=== PATIENT | female | born 2000 | race Two or more races ===

== ENCOUNTER 2025-01-11 06:32 | Emergency (ER) | payer MEDICAID, SELFPAY ==
[2025-01-11 06:32] VITALS: BMI 31.1
[2025-01-11 06:40] VITALS: BP 121/72; PULSE 70; RESP 19; TEMP 36.4; O2SAT 96
--- NOTE | 2025-01-11 06:45 | XR_ITS ---
Examination: Abdomen sonogram, Limited Date and time of exam: January 11, 2025, 0715 hours INDICATIONS: Epigastric pain nausea vomiting beginning today Technique: Real-time jay scale transabdominal sonographic images of the upper abdomen obtained. Findings: Normal gallbladder Normal common bile duct 0.2 cm Pancreatic head 1.4 cm Liver 14.1 cm no focal liver lesions Normal hepatopetal portal venous flow Patent IVC IMPRESSION: Negative study
--- NOTE | 2025-01-11 06:57 | PD.EDABDPN ---
ED Abdominal Pain RME/HPI General Chief Complaint: Abdominal Pain Stated complaint: RUQ PAIN/NAUSEA/ DIARRHEA X 1DAY Time seen by provider: 01/11/25 06:33 Arrival date/time: 01/11/25 06:32 24-year-old female with no known medical history presents to the emergency room with a chief complaint of right upper quadrant abdominal pain, nausea, diarrhea x 1 day Source: patient Mode of arrival: ambulatory Limitations: no limitations Related Data Previous Rx's ?Medication ?Instructions ?Recorded acetaminophen 500 mg tablet 1,000 mg (2 x 500 mg) PO Q6H PRN 01/11/25 (Tylenol Extra Strength) pain #30 tabs ondansetron 4 mg disintegrating 4 mg PO Q8H PRN nausea and 01/11/25 tablet vomiting #14 tabs Allergies Allergy/AdvReac Type Severity Reaction Status Date / Time No Known Allergies Allergy Verified 01/11/25 06:35 Review of Systems Review of Systems Systems Reviewed: All systems reviewed, normal except as documented Constitutional Constitutional: Reports system reviewed and no additional complaints, except as documented, Denies fatigue, Denies fever(s), Denies headache(s) and Denies weakness Eyes Eyes: Reports system reviewed and no additional complaints, except as documented, Denies blurry vision and Denies change in vision ENT Ears, Nose, Mouth, and Throat: Reports system reviewed and no additional complaints, except as documented, Denies otalgia, Denies headache(s), Denies nasal congestion, Denies throat swelling and Denies vertigo Cardiovascular Cardiovascular: Reports system reviewed and no additional complaints, except as documented, Denies chest pain, Denies dyspnea and Denies dyspnea on exertion Respiratory Respiratory: Reports system reviewed and no additional complaints, except as documented, Denies chest congestion, Denies cough, Denies dyspnea, Denies dyspnea on exertion and Denies wheezing Gastrointestinal Gastrointestinal: Reports system reviewed and no additional complaints, except as documented, Reports abdominal pain, Reports cramping, Reports nausea and Reports vomiting Genitourinary Genitourinary: Reports system reviewed and no additional complaints, except as documented Musculoskeletal Musculoskeletal: Reports system reviewed and no additional complaints, except as documented and Denies back pain Integumentary/Breasts Skin/Breast: Reports system reviewed and no additional complaints, except as documented and Denies wounds Neurologic Neurologic: Reports system reviewed and no additional complaints, except as documented, Denies confusion, Denies headache(s), Denies lack of coordination, Denies vertigo and Denies weakness Psychiatric Psychiatric: Reports system reviewed and no additional complaints, except as documented, Denies anxiety, Denies confusion, Denies depression, Denies paranoia, Denies suicidal ideation and Denies tactile hallucinations Endocrine Endocrine: Reports system reviewed and no additional complaints, except as documented and Denies fatigue Hematologic/Lymphatic Hematologic/Lymphatic: Reports system reviewed and no additional complaints, except as documented and Denies lymphadenopathy Allergic/Immunologic Allergic/Immunologic: Reports system reviewed and no additional complaints, except as documented, Denies throat swelling, Denies urticaria and Denies wheezing Past Medical History Social History SMOKING STATUS: Never smoker ED Exam General Limitations: Present no limitations General appearance: Present alert and in no apparent distress Head Head exam: Present atraumatic Eye Eye exam: Present normal appearance, PERRL and EOMI ENT ENT exam: Present normal exam, normal oropharynx and mucous membranes moist Neck Neck exam: Present normal inspection, full ROM and trachea midline Chest Chest inspection: Present normal inspection and symmetric chest wall rise Respiratory Respiratory exam: Present normal lung sounds bilaterally; Absent respiratory distress, wheezes, stridor, accessory muscle use or prolonged expiratory phase Cardiovascular Cardiovascular exam: Present regular rate, normal rhythm and normal heart sounds Abdominal Exam Abdominal exam: Present soft, tenderness and normal bowel sounds; Absent distention, guarding, rebound or rigidity Abdominal tenderness: Present RUQ, LUQ, epigastrium and mild Extremities Exam Extremities exam: Present normal inspection and full ROM Back Exam Back exam: Present normal inspection and full ROM Neurological Exam Neurological exam: Present alert, oriented X3 and CN II-XII intact Psychiatric Psychiatric exam: Present normal affect and normal mood Skin Skin exam: Present warm, dry, intact and normal color Course Quality Measures none Orders Category Date Time Status US gall bladder Stat Exams 01/11/25 06:45 Completed CBC Stat Lab 01/11/25 07:05 Completed CMP [Comprehensive Metabolic Panel] Stat Lab 01/11/25 07:05 Completed HCG Qualitative,Urine Stat Lab 01/11/25 07:09 Completed Lipase Stat Lab 01/11/25 07:05 Completed UA [Urinalysis] Stat Lab 01/11/25 07:09 Completed Urine Culture Stat Lab 01/11/25 07:09 Received Vital Signs Vital signs: Vital Signs Temperature 97.5 F 01/11/25 06:40 Pulse Rate 70 01/11/25 06:40 Respiratory Rate 19 01/11/25 06:40 Blood Pressure 121/72 01/11/25 06:40 Pulse Oximetry (%) 96 01/11/25 06:40 Oxygen Delivery Method Room Air 01/11/25 06:40 Abdominal Pain MDM MDM Narrative MDM Narrative:: 24-year-old female with no known medical history presents to the emergency room with a chief complaint of right upper quadrant abdominal pain, nausea, diarrhea x 1 day Patient is hemodynamically stable and in no apparent distress Physical examination shows epigastric and right upper quadrant abdominal pain with palpation. The patient is currently she states she was about 6 to 8 weeks. The patient denies any lower abdominal pain or any pelvic pain. The patient denies any dysuria. Ultrasound of the gallbladder was completed and was negative for any cholelithiasis or cholecystitis. CBC shows some leukocytosis but the patient states she has been vomiting. CMP is within normal limits. Since the patient is currently I spoke to her about further radiation. The patient states she would like to go home with pain medication and nausea medication and if her symptoms get worse return to the emergency room Patient was discharged and educated to follow-up with primary care provider in the next 24 to 48 hours and return to the emergency room for any evidence of worsening signs or symptoms Patient data External records reviewed:: [facility] previous records Clinical information provided by:: patient Social determinants that could affect healthcare access:: none Patient has the following chronic illnesses:: No chronic illness How is presenting disease/condition affected by chronic disease/condition?: no chronic disease Evaluation data The following diagnostics were reviewed and interpreted by me:: lab results and radiology exam(s) Lab and/or radiology exams considered but not ordered:: Labs and radiology exams considered and ordered Interpretation Summary: Ultrasound gallbladder-Findings: Normal gallbladder Normal common bile duct 0.2 cm Pancreatic head 1.4 cm Liver 14.1 cm no focal liver lesions Normal hepatopetal portal venous flow Patent IVC IMPRESSION: Negative study Medications / Prescriptions Medications or Prescriptions considered but not ordered:: Medication given Medication administrations:: Medication given Consultations Consultation(s) initiated? (list below): No Diagnosis Differential diagnosis abdominal pain: abdominal pain, gastroenteritis, pancreatitis and other (Cholelithiasis/cholecystitis) Most likely diagnosis given after review of the tests above:: Gastroenteritis Admission Indicated Admission indicated?: not indicated Admission Request Was there a request for admission?: No Disposition Plan Disposition Plan: Discharge Discharge Attestation Discharge Attestation: The patient and all family members were given an opportunity to ask questions and understood the discharge instructions. Discharge instructions specifically effects, indications for sooner follow up or return to the emergency department, and the expected course of current diagnosis. Patient condition: Stable Discharge Plan Plan Patient Disposition: HOME (Self Care) Prescriptions/Referrals Prescriptions/Med Rec: New ondansetron 4 mg tablet,disintegrating 4 mg PO Q8H PRN (Reason: nausea and vomiting) Qty: 14 0RF acetaminophen [Tylenol Extra Strength] 500 mg tablet 1,000 mg PO Q6H PRN (Reason: pain) Qty: 30 0RF Referrals: Compa Buchanan MD [Primary Care Provider, Family Practice] - In 1 week Problem List Clinical Impression: Gastroenteritis Patient/Caregiver Discharge Instructions Education Materials: ED Gastroenteritis, Noninfectious Additional Instructions: Please follow-up with your primary care provider in the next 24 to 48 hours Ultrasound of your gallbladder was within normal limits Blood work and urinalysis were within normal limits For any evidence of worsening signs or symptoms return to the emergency room immediately Print Language: Czech Stand Alone Forms: [employer] Award Info., Work/School Release, Patient Portal Info Letter
[2025-01-11 07:20] LABS: Collection Type, Urine Clean Catch
[2025-01-11 07:24] LABS: HCG Qualitative,Urine Positive
[2025-01-11 07:24] LABS: Basophils # (Auto) 0.0 Thou/mm3 (0.0-0.2); Basophils % (Auto) 0 % (0-2.5); Eosinophils # (Auto) 0.0 Thou/mm3 (0.0-0.5); Eosinophils % (Auto) 0 % (0-10); Hematocrit 40.1 % (36.0-46.0); Hemoglobin 13.7 g/dL (12.0-16.0); Immature Granulocytes Auto 0.10 Thou/mm3 (0.00-0.00); Lymphocytes # (Auto) 1.5 Thou/mm3 (1.0-4.8); Lymphocytes % (Auto) 9 % (10-50); Mean Corpuscular HGB Conc 34.2 g/dl (31.0-37.0); Mean Corpuscular Hemoglobin 28.6 pg (25.0-35.0); Mean Corpuscular Volume 84 fL (80-100); Monocytes # (Auto) 0.6 Thou/mm3 (0.0-0.8); Monocytes % (Auto) 3 % (0-12); Neutrophils # (Auto) 15.2 Thou/mm3 (1.8-7.7); Neutrophils % (Auto) 87 % (37-80); Nucleated Red Blood Cell # 0.00 Thou/mm3 (0.00-0.00); Nucleated Red Blood Cell % 0 /100 WBC (0); Platelet Count 248 Thou/mm3 (140-440); RDW Standard Deviation 41.4 fL (36.4-46.3); Red Blood Count 4.79 Miln/mm3 (4.00-5.20); White Blood Count 17.3 Thou/mm3 (3.6-11.0)
[2025-01-11 07:28] LABS: Amorphous Crystals,Urine Present (Absent); Bacteria,Urine Rare; Bilirubin,Urine Negative (Negative); Blood,Urine Negative (Negative); Clarity,Urine Turbid (Clear/Hazy); Color,Urine Yellow (Lt Yel-Yel); Glucose, Urine Negative (Negative); Ketones,Urine 1+ (Negative); Leukocyte Esterase,Urine Negative (Negative); Nitrite,Urine Negative (Negative); PH,Urine 6.5 (5.0-7.0); Protein,Urine 1+ (Neg - Trace); RBC,Urine 4 /hpf (0-3); Specific Gravity,Urine 1.022 (1.001-1.035); Squamous Epithelial Cell,Urine 2 /hpf (0-5); Urobilinogen,Urine Negative mg/dL (0.0-1.0); WBC,Urine 3 /hpf (0-5)
[2025-01-11 08:12] LABS: Alanine Aminotransferase 10 U/L (10-49); Albumin, Serum 4.9 gm/dL (3.5-5.0); Albumin/Globulin Ratio 2.1 (1.2-2.2); Anion Gap 11 (7-16); Aspartate Amino Transferase 19 U/L (0-34); BUN/Creatinine Ratio 11 Ratio (12-20); Bilirubin,Total 0.4 mg/dL (0.3-1.2); Blood Urea Nitrogen 9 mg/dL (9-23); Calcium 9.8 mg/dL (8.3-10.6); Calcium (Corrected) 9.8 mg/dL (8.5-10.1); Carbon Dioxide 23.5 mMol/L (20.0-31.0); Chloride 105 mMol/L (98-107); Creatinine (Component) 0.8 mg/dL (0.6-1.3); Estimated Creatinine Clearance 105.2 mL/min (>60); Globulin 2.3 gm/dL (2.3-3.5); Glucose 165 mg/dL (74-106); Lipase 36 U/L (12-53); Osmolality,Calculated 280 (275-295); Potassium 3.9 mMol/L (3.4-5.1); Sodium 139 mMol/L (136-145); Total Protein 7.2 gm/dL (5.7-8.2); eGFR > 60 See Note
[2025-01-11 08:32] LABS: Alkaline Phosphatase 56 U/L (46-116)
== END 2025-01-11 09:18 | disposition home or self-care (01) ==
PROVIDERS: Emergency Provider Nurse Practitioner Family; PCP Family Medicine
DX: K52.9 Noninfective gastroenteritis and colitis, unspecified (principal)
CPT/HCPCS: 36415; 76705; 80053; 81001; 81025; 83690; 85025; 87086; 99283